=== PATIENT | male | born 1990 | race Caucasian/White ===

== ENCOUNTER → 2020-08-10 09:42 | Outpatient (CLI) | payer MEDICAID, SELFPAY ==
--- NOTE | 2020-08-10 14:59 | STRESSREP ---
Stress Test Report Date: 08/10/2020 Procedure: Exercise tolerance test Indications: Family history of coronary artery disease, chest pain, abnormal EKG Consent: Per the patient Procedure: The patient exercised on a [employer] protocol for 12 minutes and 32 seconds achieving a peak heart rate of 190 bpm (100% predicted maximal heart rate) with a peak blood pressure 160/80 mmHg and a peak MET capacity of approximately 14.3 MET's. The baseline ECG demonstrated sinus rhythm. The peak exercise ECG demonstrated sinus tachycardia with no significant ischemic ST-T changes. [There were no cardiac dysrhythmias pretest, during exercise, or recovery]. The functional capacity was considered excellent for age. The patient had no complaint of chest discomfort during exercise or recovery. The examination was discontinued secondary to achieving target heart rate. Impression: 1. Technically adequate (percent predicted maximal heart rate greater than 85%) exercise tolerance test 2. Stress test is negative for exercise-induced chest pain. 3. Stress test test is negative for exercise-induced EKG changes of ischemia. 4. Functional capacity is excellent for age This note was generated with [employer] software. It may contain incorrect words, spelling, and punctuation that were not noted in checking the note before signing.
== END ==
PROVIDERS: PCP Physician Assistant; Visit Provider Physician Assistant
DX: R07.9 Chest pain, unspecified (principal); R94.31 Abnormal electrocardiogram [ECG] [EKG]
CPT/HCPCS: 93017